=== PATIENT | male | born 1990 | race Caucasian/White ===

== ENCOUNTER 2016-09-20 01:54 | Emergency (ER) | payer BC ==
[2016-09-20] MEDS ORDERED: ACETAMINOPHEN SOLN 325 MG/10.15 ML UDCUP PO ONE (02:09)
[2016-09-20] MEDS ORDERED: ACETAMINOPHEN 325 MG TABLET PO ONE (02:12)
--- NOTE | 2016-09-20 05:52 | ER Document Report ---
ED General - General Chief Complaint: Ankle Pain Stated Complaint: ANKLE PAIN/NONINJURY RELATED Notes: Patient is a 26 show male presents with complaint of pain in his right ankle. Has some slight swelling. No pain in the calf. No pain in the remainder of the lower extremity. No recent long road trips or travel. Patient says pain occurs when he bears weight on the ankle moves ankle. He's had previous ankle sprains. He does not remember any acute injury to the ankle. No history of DVT. No fevers. No redness or warmth to the ankle. No other complaints at this time. He works at [employer] in the [employer]. TRAVEL OUTSIDE OF THE [place] IN LAST 30 DAYS: No - Related Data Allergies/Adverse Reactions: No Known Allergies Allergy (Verified 06/21/16 07:38) Past Medical History - Social History Smoking Status: Never Smoker Chew tobacco use (# tins/day): No Frequency of alcohol use: Rare Drug Abuse: None Family History: Reviewed & Not Pertinent, CAD, CVA, DM, Hyperlipidemia, Hypertension, Malignancy Patient has suicidal ideation: No Patient has homicidal ideation: No - Past Medical History Cardiac Medical History: Denies: Hx Coronary Artery Disease, Hx Heart Attack, Hx Hypertension Pulmonary Medical History: Reports: Hx Asthma, Hx Bronchitis Denies: Hx COPD, Hx Pneumonia Neurological Medical History: Denies: Hx Cerebrovascular Accident, Hx Seizures Renal/ Medical History: Reports: Hx Kidney Stones. Denies: Hx Peritoneal Dialysis Musculoskeltal Medical History: Denies Hx Arthritis - Immunizations Immunizations up to date: Yes Hx Diphtheria, Pertussis, Tetanus Vaccination: Yes Review of Systems - Review of Systems Notes: My Normal Review Basic REVIEW OF SYSTEMS: CONSTITUTIONAL : Denies fever, chills, or sweats. Denies recent illness. MUSCULOSKELETAL: Right ankle pain SKIN: Denies rash or skin lesions. NEUROLOGICAL: Denies sensory or motor loss. ALL OTHER SYSTEMS REVIEWED AND NEGATIVE. Physical Exam - Vital signs Vitals: Temp Pulse Resp BP Pulse Ox 97.9 F 66 16 135/84 H 96 09/20/16 02:05 09/20/16 02:05 09/20/16 02:05 09/20/16 02:05 09/20/16 02:05 - Notes Notes: General Appearance: Well nourished, alert, cooperative, no acute distress, no obvious discomfort. Vitals: reviewed, See vital signs table. Extremities: strength 5/5 in all extremities, good pulses in all extremities, patient has pain to palpation mainly on the medial aspect of the ankle. Some pain over the anterior aspect of the ankle. Small amount of swelling. Pulses intact the foot. Distal sensation intact. Pain is worse when I put the patient 's ankle through range of motion. Patient does have full range of motion of the ankle., no edema. Skin: warm, dry, appropriate color, no rash Neuro: speech clear, oriented x 3, normal affect, responds appropriately to questions. Course - Vital Signs Vital signs: Temp Pulse Resp BP Pulse Ox 97.9 F 66 16 135/84 H 96 09/20/16 02:05 09/20/16 02:05 09/20/16 02:05 09/20/16 02:05 09/20/16 02:05 - Transfer of Care Notes: 09/20/16 05:55 I suspect patient probably has tendinitis of his ankle. We'll give him crutches and Triston wrap for his ankle. I encourage him to keep that leg elevated when he is not on a standing up. I encouraged him to be nonweightbearing for the next several days. I encouraged him to return to ER immediately if has worsening swelling, redness, or fevers. Patient agrees with plan will be discharged home. Dictation of this chart was performed using voice recognition software; therefore, there may be some unintended grammatical errors. Discharge - Discharge Clinical Impression: Tendonitis Ankle pain, right Qualifiers: Chronicity: acute Qualified Code(s): M25.571 - Pain in right ankle and joints of right foot Condition: Good Disposition: HOME, SELF-CARE Instructions: Use of Crutches ([facility]) Additional Instructions: Please keep your leg elevated whenever you are not using the crutches are up and about. These do not bear weight on your ankle for at least 3-4 days. After that you can slowly start to bear weight if it is nontender. If you continue to have any pain or swelling after one week and please follow-up with orthopedic clinic. The number for the orthopedic clinic is under Dr. Garcia in your discharge paperwork. Please return to ER if you have increased swelling, fevers, redness, or warmth to the ankle. Forms: Return to Work, Special Work Note Referrals: CR YANG NP-C [Primary Care Provider] - Follow up in 1 week CHARLI GARCIA MD [ACTIVE STAFF] - Follow up in 1 week
[2016-09-20 06:11] VITALS: BP 118/88
== END 2016-09-20 06:10 | disposition home or self-care (01) ==
LOC: ER 01:54
DX: M77.9 Enthesopathy, unspecified (principal); M25.571 Pain in right ankle and joints of right foot; Z87.442 Personal history of urinary calculi
CPT/HCPCS: 99283

== ENCOUNTER → 2017-02-27 | Outpatient (CLI) | payer BC ==
[2017-02-27 12:23] LABS: ABSOLUTE EOSINOPHILS # (AUTO) 0.5 10^3/uL (0.0-0.6); ABSOLUTE LYMPHOCYTES (AUTO) 2.4 10^3/uL (0.5-4.7); ABSOLUTE MONOCYTES (AUTO) 0.7 10^3/uL (0.1-1.4); ABSOLUTE NEUT (AUTO) 4.6 10^3/uL (1.7-8.2); BASOPHILS % (AUTO) 0.5 % (0-2); HEMATOCRIT 42.8 % (37.9-51.0); HEMOGLOBIN 14.1 g/dL (13.5-17.0); HGB HCT DIFFERENCE -0.5; LYMPHOCYTES % (AUTO) 29.1 % (13-45); MEAN CORPUSCULAR HEMOGLOBIN 28.7 pg (27.0-33.4); MEAN CORPUSCULAR HGB CONC 33.1 g/dL (32.0-36.0); MEAN CORPUSCULAR VOLUME 87 fl (80-97); MONOCYTES % (AUTO) 8.5 % (3-13); RED BLOOD COUNT 4.92 10^6/uL (4.35-5.55); RED CELL DISTRIBUTION WIDTH 13.1 % (11.5-14.0); SEGMENTED NEUTROPHILS % (AUTO) 55.9 % (42-78); WHITE BLOOD COUNT 8.1 10^3/uL (4.0-10.5)
[2017-02-27 12:52] LABS: ALANINE AMINOTRANSFERASE 20 U/L (21-72); ALBUMIN 4.3 g/dL (3.5-5.0); ALKALINE PHOSPHATASE 65 U/L (38-126); ANION GAP 12 (5-19); ASPARTATE AMINO TRANSFERASE 21 U/L (17-59); BILIRUBIN,DIRECT 0.3 mg/dL (0.0-0.4); BILIRUBIN,TOTAL 0.8 mg/dL (0.2-1.3); BLOOD UREA NITROGEN 21 mg/dL (7-20); CALCIUM 9.8 mg/dL (8.4-10.2); CARBON DIOXIDE 25 mmol/L (22-30); CHLORIDE 104 mmol/L (98-107); Direct HDL 32 mg/dL (>40); GLUCOSE 88 mg/dL (75-110); POTASSIUM 4.6 mmol/L (3.6-5.0); SODIUM 140.8 mmol/L (137-145); TOTAL PROTEIN 7.4 g/dL (6.3-8.2); TRIGLYCERIDES 205 mg/dL (<150)
[2017-02-27 13:03] LABS: DIRECT LDL 149 mg/dL (<100)
== END ==
LOC: OD 11:20
PROVIDERS: ATTEND Psychiatry & Neurology Psychiatry
DX: E66.9 Obesity, unspecified (principal); F60.3 Borderline personality disorder; F90.2 Attention-deficit hyperactivity disorder, combined type; F63.81 Intermittent explosive disorder
CPT/HCPCS: 36415; 80053; 80061; 84443; 85025

== ENCOUNTER → 2017-07-03 | Outpatient (CLI) | payer BC ==
[2017-07-03 12:14] LABS: ABSOLUTE BASOPHILS # (AUTO) 0.1 10^3/uL (0.0-0.2); ABSOLUTE EOSINOPHILS # (AUTO) 0.1 10^3/uL (0.0-0.6); ABSOLUTE MONOCYTES (AUTO) 0.7 10^3/uL (0.1-1.4); ABSOLUTE NEUT (AUTO) 5.4 10^3/uL (1.7-8.2); EOSINOPHILS % (AUTO) 1.5 % (0-6); HEMATOCRIT 41.3 % (37.9-51.0); HEMOGLOBIN 14.3 g/dL (13.5-17.0); HGB HCT DIFFERENCE 1.6; LYMPHOCYTES % (AUTO) 24.6 % (13-45); MEAN CORPUSCULAR HEMOGLOBIN 29.8 pg (27.0-33.4); MEAN CORPUSCULAR HGB CONC 34.7 g/dL (32.0-36.0); MEAN CORPUSCULAR VOLUME 86 fl (80-97); MONOCYTES % (AUTO) 8.2 % (3-13); RED BLOOD COUNT 4.81 10^6/uL (4.35-5.55); RED CELL DISTRIBUTION WIDTH 12.9 % (11.5-14.0); SEGMENTED NEUTROPHILS % (AUTO) 64.7 % (42-78); WHITE BLOOD COUNT 8.3 10^3/uL (4.0-10.5)
[2017-07-03 12:41] LABS: ALANINE AMINOTRANSFERASE 29 U/L (21-72); ALBUMIN 4.5 g/dL (3.5-5.0); ALKALINE PHOSPHATASE 66 U/L (38-126); ANION GAP 13 (5-19); ASPARTATE AMINO TRANSFERASE 20 U/L (17-59); BILIRUBIN,DIRECT 0.4 mg/dL (0.0-0.4); BILIRUBIN,TOTAL 0.7 mg/dL (0.2-1.3); BLOOD UREA NITROGEN 20 mg/dL (7-20); CALCIUM 9.8 mg/dL (8.4-10.2); CARBON DIOXIDE 27 mmol/L (22-30); CHLORIDE 103 mmol/L (98-107); CHOLESTEROL 207.69 mg/dL (0-200); CREATININE RESULT 1.13 mg/dL (0.52-1.25); Direct HDL 33 mg/dL (>40); GLUCOSE 86 mg/dL (75-110); POTASSIUM 4.7 mmol/L (3.6-5.0); SODIUM 142.5 mmol/L (137-145); TOTAL PROTEIN 7.3 g/dL (6.3-8.2); TRIGLYCERIDES 232 mg/dL (<150)
[2017-07-03 12:52] LABS: DIRECT LDL 136 mg/dL (<100)
[2017-07-03 12:58] LABS: VLDL CHOLESTEROL 46.4 mg/dL (10-31)
== END ==
LOC: OD 11:04
PROVIDERS: ATTEND Psychiatry & Neurology Psychiatry
DX: F63.81 Intermittent explosive disorder (principal); F90.2 Attention-deficit hyperactivity disorder, combined type
CPT/HCPCS: 36415; 80053; 80061; 84443; 85025

== ENCOUNTER 2017-08-13 14:45 | Emergency (ER) | payer OTHER, BC ==
[2017-08-13 15:02] VITALS: BP 140/86
[2017-08-13] MEDS ORDERED: NAPROXEN 250 MG TABLET PO ONE (15:21)
[2017-08-13] MEDS ORDERED: CYCLOBENZAPRINE HCL 10 MG TABLET PO ONE (15:21)
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
== END 2017-08-13 15:50 | disposition home or self-care (01) ==
LOC: ER 14:45
DX: M54.5 Low back pain (principal); R51 Headache; V89.2XXA Person injured in unspecified motor-vehicle accident, traffic, initial encounter; Z87.442 Personal history of urinary calculi
CPT/HCPCS: 99283

== ENCOUNTER 2020-02-12 23:02 | Emergency (ER) | payer BC ==
[2020-02-13] MEDS ORDERED: TRAMADOL HCL 50 MG TABLET PO ONE ×2 (00:37→03:24)
--- NOTE | 2020-02-13 00:37 | ER Document Report ---
ED Medical Screen (RME) - General Chief Complaint: Groin Pain Stated Complaint: GROIN PAIN,SKIN SORES INSIDE OF THIGHS Primary Care Provider: CHRISTINE MCKNIGHT NP [Primary Care Provider] - Follow up as needed Notes: Patient is a 29-year-old white male with a history of acid reflux, hypothyroidism and ADHD who presents the emergency department the chief complaint of right hip pain for the past 3 weeks. Denies any inciting injury or trauma. States the lateral hip hurts with any movement or walking. States he feels pain in the right anterior groin at the same time. The groin pain also hurts with any cough or bending or lifting. He denies any bulging or heavy lifting. He denies any testicular pain or swelling. States he is also been dealing with some chafing in the bilateral inner thighs. No other complaints or concerns at this time. I have treated and performed a rapid initial assessment of this patient. A comprehensive ED assessment and evaluation of the patient, analysis of test results and completion of medical decision making process will be conducted by additional ED providers. PHYSICAL EXAMINATION: GENERAL: Well-appearing, well-nourished and in no acute distress. A&Ox4. Answers questions appropriately. TRAVEL OUTSIDE OF THE [place] IN LAST 30 DAYS: No - Related Data Allergies/Adverse Reactions: No Known Allergies Allergy (Verified 08/13/17 14:46) Past Medical History - Past Medical History Cardiac Medical History: Denies: Hx Coronary Artery Disease, Hx Heart Attack, Hx Hypertension Pulmonary Medical History: Reports: Hx Asthma, Hx Bronchitis Denies: Hx COPD, Hx Pneumonia Neurological Medical History: Denies: Hx Cerebrovascular Accident, Hx Seizures Renal/ Medical History: Reports: Hx Kidney Stones. Denies: Hx Peritoneal Dialysis Musculoskeltal Medical History: Denies Hx Arthritis - Immunizations Immunizations up to date: Yes Hx Diphtheria, Pertussis, Tetanus Vaccination: Yes Physical Exam - Vital signs Vitals: Temp Pulse Resp BP Pulse Ox 99.2 F 97 20 143/86 H 96 02/12/20 23:18 02/12/20 23:18 02/12/20 23:18 02/12/20 23:18 02/12/20 23:18 Course - Vital Signs Vital signs: Temp Pulse Resp BP Pulse Ox 99.2 F 97 20 143/86 H 96 02/12/20 23:18 02/12/20 23:18 02/12/20 23:18 02/12/20 23:18 02/12/20 23:18 Doctor's Discharge - Discharge Referrals: CHRISTINE MCKNIGHT CHAIRMAN AND CHIEF EXECUTIVE OFFICER [Primary Care Provider] - Follow up as needed
--- NOTE | 2020-02-13 01:36 | RADIOLOGY REPORT (SQ) ---
XR HIP 2 OR MORE VIEWS CLINICAL STATEMENT: r hip/groin pain COMPARISON: None FINDINGS: Bony alignment is anatomic. There is no fracture or dislocation. The soft tissues are unremarkable. IMPRESSION: No fracture.
[2020-02-13 05:35] VITALS: BP 115/87
--- NOTE | 2020-02-13 07:00 | ER Document Report ---
Entered by DAVID HURT SCRIBE 02/13/20 0530 Acting as scribe for:KATIE DREW IV, MD ED General - General Chief Complaint: Groin Pain Stated Complaint: GROIN PAIN,SKIN SORES INSIDE OF THIGHS Time Seen by Provider: 02/13/20 05:09 Primary Care Provider: CHRISTINE MCKNIGHT NP [Primary Care Provider] - Follow up as needed Mode of Arrival: Ambulatory Information source: Patient Notes: This 29 year old male patient presents to the ED today with multiple complaints. Patient reports right hip pain for the past x3 weeks, worse with ambulation and changing positions;pain does not radiate. 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 He states that he went to the chiropractor x2 weeks ago for the pain and that he felt fine for about x2 days, but the pain returned. He reports right-sided groin pain for the past x3 days that is sharp in nature. Denies any testicular swelling/pain or bulging. He also notes chafing to bilateral inner thighs for a x1 week. He states that he has been applying diaper rash cream to the areas without relief. Denies fever, chills, or dysuria. TRAVEL OUTSIDE OF THE [place] 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 denies: Chills, Fever EENT: No symptoms reported Cardiovascular: No symptoms reported Respiratory: No symptoms reported Gastrointestinal: No symptoms reported Genitourinary: See HPI. denies: Dysuria Male Genitourinary: See HPI. denies: Testicular pain - or swelling Musculoskeletal: See HPI, Joint pain - Right hip, Other - Bilateral groin pain Skin: See HPI, Other - Chafing Hematologic/Lymphatic: No symptoms reported Neurological/Psychological: No symptoms reported -: Yes All other systems reviewed and negative Physical Exam - Vital signs Vitals: Temp Pulse Resp BP Pulse Ox 99.2 F 97 20 143/86 H 96 02/12/20 23:18 02/12/20 23:18 02/12/20 23:18 02/12/20 23:18 02/12/20 23:18 - General General appearance: Alert In distress: None - HEENT Head: Normocephalic, Atraumatic Eyes: Normal Pupils: PERRL - Respiratory Respiratory status: No respiratory distress Chest status: Nontender Breath sounds: Normal Chest palpation: Normal - Cardiovascular Rhythm: Regular Heart sounds: Normal auscultation Murmur: No Friction rub: No Gallop: None auscultated - Abdominal Inspection: Normal Distension: No distension Bowel sounds: Normal Tenderness: Nontender - Abdomen soft Organomegaly: No organomegaly - Genitourinary Inspection: Other - No hernias. No: Penile discharge Tenderness: Nontender. No: Lesions, Testicle tender, Epididymis tender Scrotum: Normal. No: Swelling, Redness - Extremities General upper extremity: Normal inspection Thigh: Other - Folliculitis - Neurological Neuro grossly intact: Yes Orientation: AAOx4 Ruben Coma Scale Eye Opening: Spontaneous [place] Coma Scale Verbal: Oriented [place] Coma Scale Motor: Obeys Commands [place] Coma Scale Total: 15 - Psychological Associated symptoms: Normal affect, Normal mood - Skin Skin irregularity: other - Folliculitis to inside of thighs bilaterally Course - Re-evaluation Re-evalutation: 02/13/20 05:30 Results of ED MSE discussed with patient. All questions were answered prior to discharge. Emergency signs and symptoms, reasons to return to the emergency department discussed with patient. - Vital Signs Vital signs: Temp Pulse Resp BP Pulse Ox 98.8 F 81 17 115/87 H 98 02/13/20 05:35 02/13/20 05:35 02/13/20 05:35 02/13/20 05:35 02/13/20 05:35 Discharge - Discharge Clinical Impression: Acute right hip pain, Folliculitis Condition: Stable Disposition: HOME, SELF-CARE Instructions: Folliculitis ([facility]) Additional Instructions: Return to the Emergency Department without delay if any worse. HOME CARE INSTRUCTIONS & INFORMATION: Thank you for choosing us for your medical needs. We hope you're satisfied with the care you received. After you leave, you must properly care for your problem and, at the same time, observe its progress. Any condition can change. Some illnesses can change rapidly over hours or days. If your condition worsens, return to the Emergency Department or see your physician promptly. ABOUT YOUR X-RAYS AND EKG'S: If you had an EKG or X-rays taken, they have been read by the Emergency Physician. The X-rays and EKG's will also be read by a Radiologist or Apprentice Plumber within 24 hours. If discrepancies are noted, you will be notified by telephone. Please be certain the ED has a correct telephone number & address where you can be reached. Also, realize that some fractures or abnormalities do not show up on initial X-rays. If your symptoms continue, see your physician. ABOUT YOUR LABORATORY TEST: If you had laboratory tests, the results have been reviewed by the Emergency Physician. Some test results (for example cultures) may not be available for several days. You will be contacted if any test result shows you need additional treatment. Please be certain the ED has a correct telephone number and address where you can be reached. ABOUT YOUR MEDICATIONS: You will receive instructions on how to take your medicine on the prescription label you receive. Additional information may be provided by the Pharmacy. If you have questions afterwards, call the ED for clarification or further instructions. Some prescribed medications may cause drowsiness. Do not perform tasks such as driving a car or operating machinery without consulting your Pharmacist. If you feel you need a refill of pain medication, your condition will need re-evaluation. Please do not call for a refill of any medication. ABOUT YOUR SIGNATURE: Signature of this document acknowledges to followin. Understanding that you received emergency treatment and that you may be released before al medical problems are known or treated. Please be certain the ED has a correct phone number & address where you can be reached. 2. Acknowledgement that you will arrange for follow-up care as recommended. 3. Authorization for the Emergency Physician to provide information to your follow-up Physician in order to maximize your care. AT ANY TIME, IF YOUR SYMPTOMS CHANGE SIGNIFICANTLY OR WORSEN OR YOU DEVELOP NEW SYMPTOMS, RETURN TO THE EMERGENCY DEPARTMENT IMMEDIATELY FOR RE-EVALUATION. OUR GOAL IS TO PROVIDE EXCELLENT MEDICAL CARE! WE HOPE THAT WE HAVE MET YOUR EXPECTATIONS DURING YOUR EMERGENCY DEPARTMENT VISIT AND THAT YOU FEEL YOU HAVE RECEIVED EXCELLENT CARE! Prescriptions: Clindamycin HCl [Cleocin 150 mg Capsule] 450 mg PO TID 7 Days #63 capsule Prednisone [Deltasone 20 mg Tablet] 3 tab PO DAILY 5 Days #15 tablet Nystatin [Mycostatin Cream 15 gm] 1 applic TP BID 10 Days #30 gm Forms: Return to Work Referrals: CHRISTINE MCKNIGHT TOLL LINE MECHANIC [Primary Care Provider] - Follow up as needed I personally performed the services described in the documentation, reviewed and edited the documentation which was dictated to the scribe in my presence, and it accurately records my words and actions.
== END 2020-02-13 05:40 | disposition home or self-care (01) ==
LOC: ER 23:02
DX: M25.551 Pain in right hip (principal); L73.9 Follicular disorder, unspecified; R10.30 Lower abdominal pain, unspecified; Z87.442 Personal history of urinary calculi
CPT/HCPCS: 99283

== ENCOUNTER → 2020-04-14 | Outpatient (CLI) | payer BC ==
--- NOTE | 2020-04-14 15:39 | RADIOLOGY REPORT (SQ) ---
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 TECHNIQUE: Multiplanar imaging includes non-contrasted T1, T2, FLAIR, diffusion with ADC map and pos t gadolinium contrast T1 sequences. Thin sections through the pituitary fossa pre and post contrast. Images stored on PACS. CONTRAST TYPE AND DOSE: 20 mL Prohance. RENAL FUNCTION: Not indicated. ACR Type II contrast agent associated with few, if any, unconfounded cases of NSF LIMITATIONS: None. FINDINGS: ANATOMY: No anomalies. Normal vascular flow voids. CSF SPACES: Normal in size and contour. No hemorrhage. PITUITARY FOSSA: No masses. No asymmetry. Infundibulum midline. CEREBRUM: Pre contrast imaging is normal. Normal padilla-white matter differentiation. No hydrocephalu s. On postcontrast imaging there is a 5 mm round blush of contrast in the right temporal lobe jo ann inferiorly. Nonspecific, possibly a tiny venous angioma or similar. No regional brain edema. POSTERIOR FOSSA: No signal alteration. No hemorrhage. No edema, masses, or mass effect. Internal aud itory canals, cerebello-pontine angles, mastoids normal. No enhancing lesions. ORBITS: No masses. Globes normal. PARANASAL SINUSES: No fluid levels. Mucosa normal. OTHER: No other significant finding. IMPRESSION: 1. Normal appearance of the pituitary. 2. Incidental focus of enhancement in the right temporal lobe, nonspecific. Doubtful significance an d a patient of this age. Surveillance followup imaging may be warranted however. TECHNICAL DOCUMENTATION: JOB ID: [id number] 2010 [employer]- All Rights Reserved Reading location - IP/workstation name: [email or web address]
== END ==
LOC: RAD 10:07
PROVIDERS: ATTEND Internal Medicine Endocrinology, Diabetes & Metabolism
DX: E23.0 Hypopituitarism (principal)
CPT/HCPCS: 70553; A9576